=== PATIENT | female | born 1990 | race Caucasian/White ===

== ENCOUNTER 2017-07-14 12:55 | Emergency (ER) | payer OTHER ==
[~2017-07-14] VITALS: Ht 165.1 cm; Wt 92.7 kg
[~2017-07-14 12:55] MED LIST: ATIVAN1 MG PO; CEFDINIR300 MG PO; DIFLUCAN50 MG; ENDOCET 5-3251 EACH PO; FLAGYL250 MG; FLEXERIL5 MG PO; FLINTSTONES M100 MCG PO; HYDROCODON-ACE1 EAC7 PO; IBUPROFEN800 MG PO; METRONIDAZOLE500 MG PO; MOTRIN800 MG PO; NOHOMEMEDS; PRENATAL TABLE1 EAC3 PO; PROBIOTIC1 EAC1 PO; PYRIDIUM200 MG PO; VICODIN 5-3001 EACH PO; ZITHROMAX Z-PA250 MG PO
[2017-07-14 13:38] LABS: HEMATOCRIT 38.6 % (36.0-46.0); MCH 28.8 PG (29.0-34.0); MCHC 32.6 G/DL (30.0-36.0); MCV 88.3 FL (83-99); MEAN PLAT.VOLUME 10.6 uM^3 (9.5-12.4); PLATELET COUNT 315 K/uL (156-360); RBC DIS.WIDTH-SD 38.7 % (39-53); RED BLOOD COUNT 4.37 M/uL (3.80-5.20); WHITE BLOOD COUNT 9.6 K/uL (4.1-10.2)
[2017-07-14 13:48] LABS: CHLORIDE 107 mEq/L (99-109); POTASSIUM 3.7 mEq/L (3.7-5.4); SODIUM 139 mEq/L (136-147)
[2017-07-14 13:50] LABS: GLUCOSE 127 mg/dL (70-99)
[2017-07-14] MEDS ORDERED: JUNEL FE 1.5-31 EACH PO (13:51)
[2017-07-14 13:52] LABS: ANION GAP 12 MEQ/L (2-14); TOTAL BILIRUBIN 0.4 mg/dL (0.0-1.0)
[2017-07-14 13:54] LABS: ALKALINE PHOSPHATASE 74 IU/L (3-129); GFR ESTIMATE (CALCULATED) > 59 mL/min/
[2017-07-14 13:55] LABS: UREA NITROGEN (BUN) 9 mg/dL (9-23)
[2017-07-14 14:03] LABS: QUANTITATIVE HCG < 4.0 MIU/ML
[2017-07-14 14:18] LABS: ADD MIUA? NO; BILIRUBIN NEGATIVE; BLOOD NEGATIVE; COLOR STRAW ((YELLOW)); GLUCOSE (STRIP) NEGATIVE; KETONES 5; LEUKOCYTES NEGATIVE; NITRITE NEGATIVE; PROTEIN (STRIP) NEGATIVE; SPECIFIC GRAVITY 1.008 (1.000-1.030); UCUL ADDED? NO; UROBILINOGEN 0.2 MG/DL (0.2-1.0)
[2017-07-14] MEDS ORDERED: FLEXERIL10 MG PO (15:51)
[2017-07-14] MEDS ORDERED: MOTRIN800 MG PO (15:51)
[2017-07-14] MEDS ORDERED: LIDODERM 5% P1 PATCH TD (15:51)
[2017-07-14] MEDS ORDERED: ZOFRAN ODT4 MG PO (15:51)
[2017-07-14 16:20] VITALS: BP 135/71
== END 2017-07-14 16:22 | disposition home or self-care (01) ==
LOC: EME 12:55
DX: K82.8 Other specified diseases of gallbladder (principal); R10.9 Unspecified abdominal pain; Z87.442 Personal history of urinary calculi; Z86.19 Personal history of other infectious and parasitic diseases; Z87.891 Personal history of nicotine dependence
CPT/HCPCS: 74176; 80053; 81003; 84702; 85027; 99281; 99285

== ENCOUNTER 2017-10-24 07:50 | Emergency (ER) | payer OTHER ==
[~2017-10-24] VITALS: Ht 165.1 cm; Wt 91.9 kg
[~2017-10-24 07:50] MED LIST changes: +FLEXERIL10 MG PO; +JUNEL FE 1.5-31 EACH PO; +LIDODERM 5% P1 PATCH TD; +ZOFRAN ODT4 MG PO
[2017-10-24 07:56] VITALS: BP 140/89
== END 2017-10-24 10:27 | disposition left against medical advice (07) ==
LOC: EME 07:50
DX: J06.9 Acute upper respiratory infection, unspecified (principal)
CPT/HCPCS: 83880; 87651 90; 99281

== ENCOUNTER 2018-01-16 23:59 | Emergency (ER) | payer OTHER ==
[~2018-01-16] VITALS: Ht 165.1 cm; Wt 90.9 kg
[2018-01-17 03:14] LABS: APPEARANCE SL.HAZY ((CLEAR)); BILIRUBIN NEGATIVE; BLOOD NEGATIVE; COLOR YELLOW ((YELLOW)); GLUCOSE (STRIP) NEGATIVE; KETONES NEGATIVE; LEUKOCYTES NEGATIVE; NITRITE NEGATIVE; PROTEIN (STRIP) 30; SPECIFIC GRAVITY 1.028 (1.000-1.030); UROBILINOGEN 0.2 MG/DL (0.2-1.0)
[2018-01-17 03:15] LABS: HEMATOCRIT 43.2 % (36.0-46.0); HEMOGLOBIN 14.4 G/DL (11.9-15.5); MCH 29.6 PG (29.0-34.0); MCHC 33.3 G/DL (30.0-36.0); MCV 88.9 FL (83-99); PLATELET COUNT 338 K/uL (156-360); RBC DIS.WIDTH-CV 12.6 % (11.8-14.6); RBC DIS.WIDTH-SD 41.2 % (39-53); RED BLOOD COUNT 4.86 M/uL (3.80-5.20); WHITE BLOOD COUNT 9.7 K/uL (4.1-10.2)
[2018-01-17 03:24] LABS: CHLORIDE 107 mEq/L (99-109); SODIUM 141 mEq/L (136-147)
[2018-01-17 03:26] LABS: GLUCOSE 89 mg/dL (70-99)
[2018-01-17 03:30] LABS: CREATININE 0.8 mg/dL (0.6-1.3); GFR ESTIMATE (CALCULATED) > 59 mL/min/
[2018-01-17 03:31] LABS: UREA NITROGEN (BUN) 12 mg/dL (9-23)
[2018-01-17 03:31] LABS: BACTERIA NONE SEEN /HPF; EPITHELIAL CELLS RARE /HPF; MUCUS TRACE /LPF; RED BLOOD CELLS 0-5 /HPF (0-5); UCUL ADDED? NO; WHITE BLOOD CELLS 0-5 /HPF (0-5)
[2018-01-17 04:30] LABS: QUANTITATIVE HCG < 4.0 MIU/ML
[2018-01-17] MEDS ORDERED: LIDODERM 5% P1 PATCH TD (04:39)
[2018-01-17] MEDS ORDERED: MEDROL DOSEPAK4 MG PO (04:39)
[2018-01-17] MEDS ORDERED: FLEXERIL10 MG PO (04:39)
[2018-01-17 05:21] VITALS: BP 121/90
== END 2018-01-17 05:22 | disposition home or self-care (01) ==
LOC: EME 23:59
PROVIDERS: Emergency Medicine
DX: M25.552 Pain in left hip (principal); M54.42 Lumbago with sciatica, left side; Z87.442 Personal history of urinary calculi; Z79.3 Long term (current) use of hormonal contraceptives; Z87.891 Personal history of nicotine dependence
CPT/HCPCS: 73502; 80048; 81003; 84702; 85027; 99281; 99284; J7512